=== PATIENT | female | born 1995 | race Two or more races ===

== ENCOUNTER 2018-04-30 23:57 | Emergency (ER) | payer OTHER ==
--- NOTE | 2018-05-01 00:24 | ER Document Report ---
ED General - General Stated Complaint: UNRESPONSIVE Time Seen by Provider: 05/01/18 00:22 Mode of Arrival: Carried Information source: Friend Cannot obtain history due to: Altered mental status Notes: 22-year-old female with no reported past medical history presents via private vehicle through the ambulance bay doors with her boyfriend unresponsive. Boyfriend states that approximately 20 minutes prior to arrival patient started to act oddly. He states that the patient began vomiting and then became unresponsive. He states that he laid her down in the back of the car. He states that before this occurred she was vaping tobacco. He denies any illicit drug use, alcohol use. He has been dating her for 3 years and reports that he does not know of any medical problems. Patient arrived unresponsive, vomit all over her hair and body. Breathing spontaneously but shallowly. Patient initially not responsive to noxious stimuli. - HPI Onset: Just prior to arrival Onset/Duration: Sudden Associated symptoms: Vomiting - Related Data Allergies/Adverse Reactions: No Known Allergies Allergy (Unverified 05/01/18 00:24) Past Medical History - General Information source: Friend Cannot obtain history due to: Altered mental status - Social History Smoking Status: Current Some Day Smoker Cigarette use (# per day): Yes - Vapes Frequency of alcohol use: None Drug Abuse: None Lives with: Family Family History: Reviewed & Not Pertinent Patient has suicidal ideation: No Patient has homicidal ideation: No - Medical History Medical History: Negative Review of Systems - Review of Systems -: Yes ROS unobtainable due to patient's medical condition Physical Exam - Vital signs Vitals: Resp Pulse Ox 23 H 99 05/01/18 00:00 05/01/18 00:00 - Notes Notes: PHYSICAL EXAMINATION: GENERAL: Unresponsive, GCS 8, spontaneous respirations, gagging. HEAD: Atraumatic, normocephalic. EYES: Pupils equal round and reactive to light, conjunctiva are normal. ENT: Vomitus in the airway. NECK: Normal range of motion, supple without lymphadenopathy LUNGS: Diminished breath sounds bilaterally HEART: Tachycardic without murmurs ABDOMEN: Soft, nontender, nondistended abdomen. No guarding, no rebound. No masses appreciated. Female : deferred Musculoskeletal: No pitting edema, no cyanosis, no evidence of trauma, no deformities. NEUROLOGICAL: GCS 8 PSYCH: Moaning SKIN: Warm, Dry, normal turgor, no rashes or lesions noted. Course - Re-evaluation Re-evalutation: Laboratory 04/30/18 04/30/18 04/30/18 23:59 23:59 23:59 WBC 8.9 RBC 3.99 Hgb 11.0 L Hct 33.1 L MCV 83 MCH 27.5 MCHC 33.2 RDW 16.8 H Plt Count 296 Seg Neutrophils % 36.8 L Lymphocytes % 52.3 H Monocytes % 6.6 Eosinophils % 3.5 Basophils % 0.8 Absolute Neutrophils 3.3 Absolute Lymphocytes 4.6 Absolute Monocytes 0.6 Absolute Eosinophils 0.3 Absolute Basophils 0.1 Sodium 141.7 Potassium 3.7 Chloride 106 Carbon Dioxide 21 L Anion Gap 15 BUN 6 L Creatinine 0.50 L Est GFR ( Amer) > 60 Est GFR (Non-Af Amer) > 60 Glucose 115 H POC Glucose Calcium 9.4 Total Bilirubin 0.3 Direct Bilirubin 0.1 Neonat Total Bilirubin Not Reportable Neonat Direct Bilirubin Not Reportable Neonat Indirect Bili Not Reportable AST 22 ALT 20 Alkaline Phosphatase 38 Total Protein 7.0 Albumin 4.0 Serum HCG, Qual NEGATIVE Urine Color Urine Appearance Urine pH Ur Specific [place] Urine Protein Urine Glucose (UA) Urine Ketones Urine Blood Urine Nitrite Urine Bilirubin Urine Urobilinogen Ur Leukocyte Esterase Urine WBC (Auto) Urine RBC (Auto) Urine Bacteria (Auto) Urine Mucus (Auto) Urine Ascorbic Acid Salicylates < 1.0 L Urine Opiates Screen Urine Methadone Screen Acetaminophen < 10 L Ur Barbiturates Screen Ur Phencyclidine Scrn Ur Amphetamines Screen U Benzodiazepines Scrn Urine Cocaine Screen U Marijuana (THC) Screen Serum Alcohol < 10 05/01/18 05/01/18 05/01/18 00:17 00:17 00:25 WBC RBC Hgb Hct MCV MCH MCHC RDW Plt Count Seg Neutrophils % Lymphocytes % Monocytes % Eosinophils % Basophils % Absolute Neutrophils Absolute Lymphocytes Absolute Monocytes Absolute Eosinophils Absolute Basophils Sodium Potassium Chloride Carbon Dioxide Anion Gap BUN Creatinine Est GFR ( Amer) Est GFR (Non-Af Amer) Glucose POC Glucose 116 H Calcium Total Bilirubin Direct Bilirubin Neonat Total Bilirubin Neonat Direct Bilirubin Neonat Indirect Bili AST ALT Alkaline Phosphatase Total Protein Albumin Serum HCG, Qual Urine Color YELLOW Urine Appearance TURBID Urine pH 8.0 Ur Specific [place] 1.018 Urine Protein NEGATIVE Urine Glucose (UA) NEGATIVE Urine Ketones NEGATIVE Urine Blood NEGATIVE Urine Nitrite NEGATIVE Urine Bilirubin NEGATIVE Urine Urobilinogen 4.0 H Ur Leukocyte Esterase NEGATIVE Urine WBC (Auto) 0 Urine RBC (Auto) 5 Urine Bacteria (Auto) TRACE Urine Mucus (Auto) RARE Urine Ascorbic Acid NEGATIVE Salicylates Urine Opiates Screen NEGATIVE Urine Methadone Screen NEGATIVE Acetaminophen Ur Barbiturates Screen NEGATIVE Ur Phencyclidine Scrn NEGATIVE Ur Amphetamines Screen NEGATIVE U Benzodiazepines Scrn NEGATIVE Urine Cocaine Screen NEGATIVE U Marijuana (THC) Screen NEGATIVE Serum Alcohol Head CT 05/01/18 01:15 EST IMPRESSION: 1. No acute intracranial abnormality identified. This exam was performed according to our departmental dose-optimization program, which includes automated exposure control, adjustment of the mA and/or kV according to patient size and/or use of iterative reconstruction technique. Chest X-Ray 05/01/18 04:00 IMPRESSION: Negative chest 2010 [facility] All Rights Reserved 05/01/18 00:29 22-year-old female was carried in by her boyfriend to the ambulance bay stores unresponsive. Patient has a GCS of 8 upon arrival. She will not open her eyes or respond to noxious stimuli. Patient has vomitus in the airway but is spontaneously breathing and maintaining an O2 saturation of 100%. Narcan 2 mg IV was administered with minimal effect. BGL was obtained in 115. Breath sounds difficult to auscultate bilaterally. Chest x-ray immediately obtained and showed no evidence of pneumothorax. Patient was prepped for intubation and a nasal trumpet was placed which caused the patient to open her eyes and began gagging. Boyfriend is at the bedside and states there was no drug or alcohol use. He states that he obtained vape from a found and believed it was tobacco. Patient has received 2 L of IV fluids, Zofran. 05/01/18 01:13 EDT Patient reevaluated she is sleeping, maintaining her airway. She is on 2 L nasal cannula with an O2 saturation of 100%. Heart rate has improved and now 98. 05/01/18 01:08 EST Patient reevaluated she is still sleeping soundly. She is arousable with noxious stimuli only. CBC is without leukocytosis or anemia. CMP shows no significant electrolyte abnormality. Urine hCG negative. Urinalysis not consistent with infection. Your urine drug screen negative. 05/01/18 01:21 EST 05/01/18 02:16 Patient reevaluated she is now easily arousable, conversive. She is alert and oriented x4. She does not believe that the vape liquid that she smoked was spiked with anything. We will continue to monitor the patient. 05/01/18 04:39 Patient ambulated independently in the without difficulty around the emergency department. She is tolerating fluids. Patient will be discharged home to a friend that has been present throughout her ED course. Patient was observed in the emergency department for over 4-1/2 hours and slowly improved. 05/01/18 05:13 Patient was evaluated and treated as appropriate for the patient's presenting symptoms and complaint, with consideration of any critical or life threatening conditions that may be associated with their obtained history and exam as noted above. All results were discussed with patient. Patient provided the opportunity to ask questions, and express concerns. Patient was educated on treatments based on their presumed diagnosis as noted above. At this time we will discharge the patient with return precautions and follow-up recommendations. Verbal discharge instructions given a the bedside. Medication warnings reviewed. Patient is in agreement with this plan and has verbalized understanding of return precautions. After careful consideration I feel that that patient can be safely discharged from the emergency department, they were advised to followup with a primary care physician in 2-3 days. Dictation on this chart was performed using voice recognition software and may result in unintended grammatical, spelling, syntax or errors. - Vital Signs Vital signs: Temp Pulse Resp BP Pulse Ox 99.4 F 16 106/68 99 05/01/18 04:45 05/01/18 04:45 05/01/18 04:45 05/01/18 04:45 - Laboratory Result Diagrams: 04/30/18 23:59 04/30/18 23:59 Laboratory results interpreted by me: 04/30/18 04/30/18 05/01/18 23:59 23:59 00:17 Hgb 11.0 L Hct 33.1 L RDW 16.8 H Seg Neutrophils % 36.8 L Lymphocytes % 52.3 H Carbon Dioxide 21 L BUN 6 L Creatinine 0.50 L Glucose 115 H POC Glucose Urine Urobilinogen 4.0 H Salicylates < 1.0 L Acetaminophen < 10 L 05/01/18 00:25 Hgb Hct RDW Seg Neutrophils % Lymphocytes % Carbon Dioxide BUN Creatinine Glucose POC Glucose 116 H Urine Urobilinogen Salicylates Acetaminophen - Diagnostic Test Radiology reviewed: Image reviewed, Reports reviewed - EKG Interpretation by Me EKG shows normal: Sinus rhythm Rate: Tachycardia Rhythm: NSR When compared to previous EKG there are: Previous EKG unavailable Critical Care Note - Critical Care Note Total time excluding time spent on procedures (mins): 45 - Minutes of critical care time spent in direct contact evaluating and reevaluating the patient, treating symptoms, reviewing labs and studies and speaking with family and consultants excluding any procedures Discharge - Discharge Clinical Impression: Nicotine vapor product user Altered mental status Qualifiers: Altered mental status type: somnolence Qualified Code(s): R40.0 - Somnolence Nausea & vomiting Qualifiers: Vomiting type: unspecified Vomiting Intractability: unspecified Qualified Code( s): R11.2 - Nausea with vomiting, unspecified Condition: Good Disposition: HOME, SELF-CARE Instructions: Altered Mental Status ([facility]), Vomiting ([facility]) Additional Instructions: Your lab work and imaging were within normal limits. I believe that your altered mental status has something to do with his substance use smoked earlier although it is undetectable on your urine drug screen. Please follow-up with your physician in 3-5 days. Follow up with your [id number] hours for further care or return to the ED IMMEDIATELY if symptoms worsen or you have any concerns. If you cannot afford to follow up with your primary care physician a list of low cost clinics have been provided at the end of your discharge papers as well. Most prescribed medications have multiple side effects. The safest thing to do is when filling your prescription speak to your pharmacist regarding possible interactions with your normal home medications and over the counter medications such as Ibuprofen, Tylenol, Benadryl. If you experience any symptoms that cause you discomfort or concern you should discontinue the medication immediately and return to the emergency room or call your primary care physician. Forms: Smoking Cessation Education
--- NOTE | 2018-05-01 00:26 | RADIOLOGY REPORT (SQ) ---
EXAM DESCRIPTION: XR CHEST 1 VIEW COMPLETED DATE/TME: 05/01/2018 04:00 CLINICAL HISTORY: 22 years, Female, unresponsive COMPARISON: None. NUMBER OF VIEWS: 1 TECHNIQUE: Portable upright chest LIMITATIONS: None. FINDINGS: Heart size is normal. Lungs are clear. No pneumothorax IMPRESSION: Negative chest 2010 [facility] [employer]- All Rights Reserved
[2018-05-01 00:35] LABS: ABSOLUTE BASOPHILS # (AUTO) 0.1 10^3/uL (0.0-0.2); ABSOLUTE EOSINOPHILS # (AUTO) 0.3 10^3/uL (0.0-0.6); ABSOLUTE LYMPHOCYTES (AUTO) 4.6 10^3/uL (0.5-4.7); ABSOLUTE MONOCYTES (AUTO) 0.6 10^3/uL (0.1-1.4); ABSOLUTE NEUT (AUTO) 3.3 10^3/uL (1.7-8.2); BASOPHILS % (AUTO) 0.8 % (0-2); EOSINOPHILS % (AUTO) 3.5 % (0-6); HEMATOCRIT 33.1 % (36.0-47.0); LYMPHOCYTES % (AUTO) 52.3 % (13-45); MEAN CORPUSCULAR HEMOGLOBIN 27.5 pg (27.0-33.4); MEAN CORPUSCULAR HGB CONC 33.2 g/dL (32.0-36.0); MEAN CORPUSCULAR VOLUME 83 fl (80-97); MONOCYTES % (AUTO) 6.6 % (3-13); PLATELET COUNT 296 10^3/uL (150-450); RED BLOOD COUNT 3.99 10^6/uL (3.72-5.28); RED CELL DISTRIBUTION WIDTH 16.8 % (11.5-14.0); SEGMENTED NEUTROPHILS % (AUTO) 36.8 % (42-78); TOTAL CELLS COUNTED % (AUTO) 100 %; WHITE BLOOD COUNT 8.9 10^3/uL (4.0-10.5)
[2018-05-01] MEDS ORDERED: ONDANSETRON HCL INJ/PF 4 MG/2 ML SDV ONE ×2 (00:35→02:12)
[2018-05-01] MEDS ORDERED: ONDANSETRON HCL INJ/PF 4 MG/2 ML SDV IV ONE ×4 (00:35→02:17)
[2018-05-01] MEDS ORDERED: NALOXONE HCL INJ 2 MG/2 ML DISP.SYRIN IV ONE ×2 (00:35→00:36)
[2018-05-01 00:36] LABS: ALANINE AMINOTRANSFERASE 20 U/L (9-52); ALKALINE PHOSPHATASE 38 U/L (38-126); ANION GAP 15 (5-19); ASPARTATE AMINO TRANSFERASE 22 U/L (14-36); BILIRUBIN,DIRECT 0.1 mg/dL (0.0-0.4); BILIRUBIN,TOTAL 0.3 mg/dL (0.2-1.3); BLOOD UREA NITROGEN 6 mg/dL (7-20); CALCIUM 9.4 mg/dL (8.4-10.2); CARBON DIOXIDE 21 mmol/L (22-30); CHLORIDE 106 mmol/L (98-107); GLUCOSE 115 mg/dL (75-110); POTASSIUM 3.7 mmol/L (3.6-5.0); SODIUM 141.7 mmol/L (137-145)
[2018-05-01 00:37] LABS: ACETAMINOPHEN < 10 ug/mL (10-30); ALCOHOL < 10 mg/dL (NONE DETECTED); SALICYLATE < 1.0 mg/dL (2.0-20.0)
[2018-05-01] MEDS ORDERED: NORMAL SALINE 1000 ML 1,000 ML IV ONE (00:51)
[2018-05-01] MEDS ORDERED: RINGERS SOLUTION,LACTATED 1,000 ML IV ONE (01:07)
[2018-05-01 01:10] LABS: APPEARANCE,URINE TURBID; BILIRUBIN,URINE NEGATIVE (NEGATIVE); COLOR,URINE YELLOW; GLUCOSE, URINE NEGATIVE (NEGATIVE); KETONES,URINE NEGATIVE (NEGATIVE); LEUKOCYTE ESTERASE,URINE NEGATIVE (NEGATIVE); NITRITE,URINE NEGATIVE (NEGATIVE); PROTEIN,URINE NEGATIVE (NEGATIVE); URINE SPECIFIC GRAVITY 1.018
--- NOTE | 2018-05-01 01:30 | RADIOLOGY REPORT (SQ) ---
EXAM DESCRIPTION: CT HEAD WITHOUT IV CONTRAST COMPLETED DATE/TME: 05/01/2018 01:15 CLINICAL HISTORY: ams COMPARISON: None available TECHNIQUE: Axial CT of the head obtained from the skull apex to the skull base without contrast. FINDINGS: No acute intracranial hemorrhage identified. No mass, mass effect, shift of the midline, abnormal extra-axial fluid collection or CT evidence of acute ischemic change identified. The ventricular system is unremarkable. No acute abnormalities of the supratentorial white matter, basal ganglia, cerebellum, or brainstem. Polypoid mucosal thickening of the right maxillary sinus. Mastoid air cells are well aerated. No skull fracture identified. Visualized orbits and globes are unremarkable. DLP: 973.56 mGy-cm IMPRESSION: 1. No acute intracranial abnormality identified. This exam was performed according to our departmental dose-optimization program, which includes automated exposure control, adjustment of the mA and/or kV according to patient size and/or use of iterative reconstruction technique.
[2018-05-01 01:43] LABS: URINE AMPHETAMINES SCREEN NEGATIVE; URINE BARBITURATES SCREEN NEGATIVE; URINE BENZODIAZEPINES SCREEN NEGATIVE; URINE COCAINE SCREEN NEGATIVE; URINE MARIJUANA (THC) SCREEN NEGATIVE; URINE METHADONE SCREEN NEGATIVE; URINE PHENCYCLIDINE SCREEN NEGATIVE
[2018-05-01 04:56] VITALS: BP 106/68
--- NOTE | 2018-05-01 09:39 | EKG REPORT ---
SEVERITY:- OTHERWISE NORMAL ECG - SINUS TACHYCARDIA : Confirmed by: Fifi Terry MD 01-May-2018 09:38:42
== END 2018-05-01 05:09 | disposition home or self-care (01) ==
LOC: EDBD → ER 23:57
DX: R40.0 Somnolence (principal); F17.290 Nicotine dependence, other tobacco product, uncomplicated; R11.2 Nausea with vomiting, unspecified; R00.0 Tachycardia, unspecified
CPT/HCPCS: 93005; 96376; 99291; 96361; 96374; 96375; 36415; 82962; 80307 ×4; 84703; 85025; 80053; 81001; 71045; 70450; 93010; J2405; J2310; J7030; J7120